=== PATIENT | female | born 1955 | race Caucasian/White ===

== ENCOUNTER 2021-05-18 18:18 | Inpatient (IN) | payer MEDICARE, OTHER ==
[~2021-05-18] VITALS: Ht 154.9 cm; Wt 53.8 kg
[2021-05-18] MEDS ORDERED: LASIX TAB 20 MG20 MG PO (19:22)
[2021-05-18] MEDS ORDERED: ATORVASTATIN CA20 MG PO (19:22)
[2021-05-18] MEDS ORDERED: FEROSUL325 MG PO (19:24)
[2021-05-18] MEDS ORDERED: POTASSIUM CHLO10 ME1 PO (19:24)
[2021-05-18] MEDS ORDERED: LEVOTHYROXINE25 MCG PO (19:26)
[2021-05-18] MEDS ORDERED: LANSOPRAZOLE30 MG PO (19:26)
[2021-05-19 04:11] LABS: HEMOGLOBIN 13.2 gm/dl (12.3-15.3); RED BLOOD COUNT 4.81 M/UL (4.00-5.10); WHITE BLOOD COUNT 12.1 K/UL (4.5-11.0)
[2021-05-19] MEDS ORDERED: HYDRALAZINE HCL25 MG PO (12:54)
[2021-05-19] MEDS ORDERED: ALENDRONATE SOD70 MG PO (12:55)
[2021-05-19] MEDS ORDERED: CYANOCOBAL1000 MCG/1 INJ (12:56)
[2021-05-19] MEDS ORDERED: ATENOLOL100 MG PO (19:22)
[2021-05-19] MEDS ORDERED: CATAPRES 0.1MG0.1 MG PO (19:23)
[2021-05-19] MEDS ORDERED: METFORMIN HCL500 MG PO (19:24)
[2021-05-19] MEDS ORDERED: FENOFIBRATE160 MG PO (19:25)
[2021-05-21 04:29] LABS: HEMOGLOBIN 8.9 gm/dl (12.3-15.3); RED BLOOD COUNT 3.34 M/UL (4.00-5.10)
[2021-05-22 04:58] LABS: HEMOGLOBIN 9.1 gm/dl (12.3-15.3); RED BLOOD COUNT 3.43 M/UL (4.00-5.10)
--- NOTE | 2021-05-22 14:38 | NUR ---
Patient recieved at approximately 1400. Patient is stable, comfortable in bed with the rails up and bed in lowest position. All IV's are patent, and the patient has all needs met.
[2021-05-25 16:08] LABS: HEMOGLOBIN 10.1 gm/dl (12.3-15.3); RED BLOOD COUNT 3.82 M/UL (4.00-5.10); WHITE BLOOD COUNT 12.8 K/UL (4.5-11.0)
[2021-05-25 16:31] LABS: BUN/CREATININE RATIO 31 (0-10)
[2021-05-26] MEDS ORDERED: HYDROCODON-ACE1 EAC2 PO (13:34)
--- NOTE | 2021-05-26 15:10 | NUR ---
MARY JO DRAIN REMOVED FROM RLQ. PRESSURE DRESSING APPLIED. 25CC OF DRAINAGE NOTED TO MARY JO DRAIN. NO DISTRESS NOTED. TOLERATED WELL.
== END 2021-05-26 16:12 | disposition home health service (06) | DRG 326 ==
LOC: PROG CARE 18:37 → M/S 05-22 14:06
PROVIDERS: Internal Medicine Infectious Disease; Physician Assistant Medical; ADMIT Surgery
PROC: 0DQ70ZZ Repair Stomach, Pylorus, Open Approach (ICD-10-PCS; 2021-05-18)
PROC: 0DQ90ZZ Repair Duodenum, Open Approach (ICD-10-PCS; principal; 2021-05-18 20:59)
DX: K26.5 Chronic or unspecified duodenal ulcer with perforation (principal); K55.029 Acute infarction of small intestine, extent unspecified; N17.9 Acute kidney failure, unspecified; E87.2 Acidosis; D62 Acute posthemorrhagic anemia; K21.9 Gastro-esophageal reflux disease without esophagitis; E11.9 Type 2 diabetes mellitus without complications; D49.0 Neoplasm of unspecified behavior of digestive system; E03.9 Hypothyroidism, unspecified; E53.8 Deficiency of other specified B group vitamins; I10 Essential (primary) hypertension; L89.152 Pressure ulcer of sacral region, stage 2; D50.9 Iron deficiency anemia, unspecified; E83.42 Hypomagnesemia; Z90.49 Acquired absence of other specified parts of digestive tract; Z88.0 Allergy status to penicillin; Z88.2 Allergy status to sulfonamides; Z79.899 Other long term (current) drug therapy; Z79.84 Long term (current) use of oral hypoglycemic drugs; Z83.3 Family history of diabetes mellitus; Z82.49 Family history of ischemic heart disease and other diseases of the circulatory system
CPT/HCPCS: 36415; 80048; 80053; 82607; 82728; 82746; 82962; 83540; 83550; 83735; 84443; 85025; 85027; 94760; 97110-GP-CQ; 97116-GP-CQ; 97161; 97530-GP-CQ; C9113; J0360; J1100; J1756; J1956; J2001; J2270; J2370; J2405; J2704; J2710; J2765; J3010; J3475; J7030; J7120; P9045

== ENCOUNTER 2021-05-31 17:05 | Inpatient (IN) | payer MEDICARE, OTHER ==
[~2021-05-31] VITALS: Ht 154.9 cm; Wt 82.0 kg
[~2021-05-31 17:05] MED LIST: ALENDRONATE SOD70 MG PO; ATENOLOL100 MG PO; ATORVASTATIN CA20 MG PO; CATAPRES 0.1MG0.1 MG PO; CYANOCOBAL1000 MCG/1 INJ; FENOFIBRATE160 MG PO; FEROSUL325 MG PO; HYDRALAZINE HCL25 MG PO; HYDROCODON-ACE1 EAC2 PO; LANSOPRAZOLE30 MG PO; LASIX TAB 20 MG20 MG PO; LEVOTHYROXINE25 MCG PO; METFORMIN HCL500 MG PO; POTASSIUM CHLO10 ME1 PO
[2021-06-02 04:27] LABS: HEMOGLOBIN 9.2 gm/dl (12.3-15.3); RED BLOOD COUNT 3.48 M/UL (4.00-5.10); WHITE BLOOD COUNT 12.7 K/UL (4.5-11.0)
[2021-06-02 04:45] LABS: BUN/CREATININE RATIO 45 (0-10)
--- NOTE | 2021-06-02 14:33 | NUR ---
1430: RN CALLED RADIOLOGY REGARDING CT RESULTS. RN INFORMED THAT RADIOLOGIST IS ACTUALLY SPEAKING WITH DR CARR AT THIS TIME REGARDING THE RESULTS.
[2021-06-02 19:27] LABS: HEMOGLOBIN 10.6 gm/dl (12.3-15.3)
[2021-06-03 05:44] LABS: HEMOGLOBIN 10.5 gm/dl (12.3-15.3); WHITE BLOOD COUNT 12.9 K/UL (4.5-11.0)
[2021-06-03 05:45] LABS: RED BLOOD COUNT 4.01 M/UL (4.00-5.10)
[2021-06-03 20:02] LABS: HEMOGLOBIN 8.8 gm/dl (12.3-15.3); WHITE BLOOD COUNT 13.4 K/UL (4.5-11.0)
[2021-06-03 20:16] LABS: RED BLOOD COUNT 3.23 M/UL (4.00-5.10)
[2021-06-04 05:11] LABS: HEMOGLOBIN 9.5 gm/dl (12.3-15.3); WHITE BLOOD COUNT 16.3 K/UL (4.5-11.0)
[2021-06-04 05:15] LABS: RED BLOOD COUNT 3.58 M/UL (4.00-5.10)
--- NOTE | 2021-06-04 16:47 | NUR ---
1500- PT FAMILY MEMBER (MOTHER) CONTACTED FOR UPDATE ON PATIENT CONDITION.
[2021-06-05 09:16] LABS: HEMOGLOBIN 8.7 gm/dl (12.3-15.3); RED BLOOD COUNT 3.28 M/UL (4.00-5.10); WHITE BLOOD COUNT 25.6 K/UL (4.5-11.0)
[2021-06-06 03:33] LABS: HEMOGLOBIN 7.1 gm/dl (12.3-15.3)
[2021-06-06 03:40] LABS: RED BLOOD COUNT 2.64 M/UL (4.00-5.10); WHITE BLOOD COUNT 15.9 K/UL (4.5-11.0)
[2021-06-07 13:05] LABS: RED BLOOD COUNT 2.4 M/UL (4.00-5.10); WHITE BLOOD COUNT 14.4 K/UL (4.5-11.0)
[2021-06-07 13:12] LABS: HEMOGLOBIN 6.2 gm/dl (12.3-15.3)
[2021-06-08 06:02] LABS: RED BLOOD COUNT 2.94 M/UL (4.00-5.10)
[2021-06-09 05:58] LABS: HEMOGLOBIN 7.9 gm/dl (12.3-15.3); RED BLOOD COUNT 2.95 M/UL (4.00-5.10); WHITE BLOOD COUNT 23.9 K/UL (4.5-11.0)
[2021-06-09 17:00] LABS: BUN/CREATININE RATIO 42 (0-10)
[2021-06-10 05:58] LABS: HEMOGLOBIN 7.5 gm/dl (12.3-15.3); RED BLOOD COUNT 2.74 M/UL (4.00-5.10); WHITE BLOOD COUNT 23.8 K/UL (4.5-11.0)
[2021-06-10 06:21] LABS: BUN/CREATININE RATIO 86 (0-10)
[2021-06-10 16:13] LABS: HEPARIN INDUCED PLATELET AB 0.199 OD (0.000-0.400)
[2021-06-10 16:38] LABS: BUN/CREATININE RATIO 93 (0-10)
[2021-06-11 05:31] LABS: HEMOGLOBIN 7.4 gm/dl (12.3-15.3); RED BLOOD COUNT 2.78 M/UL (4.00-5.10)
[2021-06-11 05:32] LABS: WHITE BLOOD COUNT 16.4 K/UL (4.5-11.0)
[2021-06-11 06:00] LABS: BUN/CREATININE RATIO 108 (0-10)
[2021-06-11 16:09] LABS: BUN/CREATININE RATIO 118 (0-10)
[2021-06-12 07:58] LABS: HEMOGLOBIN 7.1 gm/dl (12.3-15.3); RED BLOOD COUNT 2.62 M/UL (4.00-5.10); WHITE BLOOD COUNT 17.7 K/UL (4.5-11.0)
[2021-06-12 08:17] LABS: BUN/CREATININE RATIO 113 (0-10)
[2021-06-12 19:52] LABS: HEMOGLOBIN 8.4 gm/dl (12.3-15.3)
[2021-06-12 20:23] LABS: BUN/CREATININE RATIO 123 (0-10)
[2021-06-13 02:19] LABS: HEMOGLOBIN 7.3 gm/dl (12.3-15.3); RED BLOOD COUNT 2.71 M/UL (4.00-5.10); WHITE BLOOD COUNT 16.7 K/UL (4.5-11.0)
[2021-06-13 06:03] LABS: RED BLOOD COUNT 2.55 M/UL (4.00-5.10); WHITE BLOOD COUNT 16.3 K/UL (4.5-11.0)
[2021-06-13 06:10] LABS: HEMOGLOBIN 6.9 gm/dl (12.3-15.3)
[2021-06-13 12:51] LABS: HEMOGLOBIN 8.3 gm/dl (12.3-15.3)
[2021-06-13 16:47] LABS: HEMOGLOBIN 8.5 gm/dl (12.3-15.3)
[2021-06-14 06:48] LABS: HEMOGLOBIN 7.6 gm/dl (12.3-15.3); RED BLOOD COUNT 2.62 M/UL (4.00-5.10); WHITE BLOOD COUNT 13.3 K/UL (4.5-11.0)
[2021-06-15 05:40] LABS: BUN/CREATININE RATIO 166 (0-10)
[2021-06-16 05:09] LABS: HEMOGLOBIN 7.8 gm/dl (12.3-15.3); RED BLOOD COUNT 2.82 M/UL (4.00-5.10); WHITE BLOOD COUNT 29.9 K/UL (4.5-11.0)
[2021-06-16 07:58] LABS: BUN/CREATININE RATIO 184 (0-10)
== END 2021-06-16 18:32 | disposition expired | DRG 856 ==
LOC: CCU 06-01 20:54 → MED SURG 4 06-01 20:54 → CCU 06-02 17:17
PROVIDERS: Anesthesiology Pain Medicine; Family Medicine; Internal Medicine Critical Care Medicine; Internal Medicine Nephrology; Internal Medicine Pulmonary Disease; Surgery; ADMIT Surgery
PROC: 3E033XZ Introduction of Vasopressor into Peripheral Vein, Percutaneous Approach (ICD-10-PCS; principal; 2021-06-01)
PROC: 0DU707Z Supplement Stomach, Pylorus with Autologous Tissue Substitute, Open Approach (ICD-10-PCS; 2021-06-02)
PROC: 3E0336Z Introduction of Nutritional Substance into Peripheral Vein, Percutaneous Approach (ICD-10-PCS; 2021-06-02)
PROC: 02HV33Z Insertion of Infusion Device into Superior Vena Cava, Percutaneous Approach (ICD-10-PCS; 2021-06-02)
PROC: B548ZZA Ultrasonography of Superior Vena Cava, Guidance (ICD-10-PCS; 2021-06-02)
PROC: B24BZZZ Ultrasonography of Heart with Aorta (ICD-10-PCS; 2021-06-04)
PROC: 0BH17EZ Insertion of Endotracheal Airway into Trachea, Via Natural or Artificial Opening (ICD-10-PCS; 2021-06-04)
PROC: 5A1945Z Respiratory Ventilation, 24-96 Consecutive Hours (ICD-10-PCS; 2021-06-04)
PROC: 30233N1 Transfusion of Nonautologous Red Blood Cells into Peripheral Vein, Percutaneous Approach (ICD-10-PCS; 2021-06-07)
DX: T81.44XA Sepsis following a procedure, initial encounter (principal); K65.9 Peritonitis, unspecified; Z51.5 Encounter for palliative care; Z20.822 Contact with and (suspected) exposure to COVID-19; N17.0 Acute kidney failure with tubular necrosis; R65.21 Severe sepsis with septic shock; E87.3 Alkalosis; E87.2 Acidosis; K91.89 Other postprocedural complications and disorders of digestive system; L89.152 Pressure ulcer of sacral region, stage 2; T81.40XA Infection following a procedure, unspecified, initial encounter; E78.5 Hyperlipidemia, unspecified; Y83.8 Other surgical procedures as the cause of abnormal reaction of the patient, or of later complication, without mention of misadventure at the time of the procedure; R74.01 Elevation of levels of liver transaminase levels; E87.6 Hypokalemia; E11.65 Type 2 diabetes mellitus with hyperglycemia; E83.42 Hypomagnesemia; D64.9 Anemia, unspecified; D69.6 Thrombocytopenia, unspecified; M81.0 Age-related osteoporosis without current pathological fracture; E88.09 Other disorders of plasma-protein metabolism, not elsewhere classified; E03.9 Hypothyroidism, unspecified; K21.9 Gastro-esophageal reflux disease without esophagitis; E53.8 Deficiency of other specified B group vitamins; Z90.49 Acquired absence of other specified parts of digestive tract; Z88.2 Allergy status to sulfonamides; Z91.040 Latex allergy status; Z88.0 Allergy status to penicillin; Z91.013 Allergy to seafood; Z83.3 Family history of diabetes mellitus; Z82.49 Family history of ischemic heart disease and other diseases of the circulatory system; Z79.4 Long term (current) use of insulin
CPT/HCPCS: ECHO; 31500; 36415; 36430; 36600; 71045; 80048; 80053; 80076; 82009; 82310; 82533; 82565; 82803; 82962; 83605; 83735; 84100; 84132; 85007; 85014; 85018; 85025; 85027; 85384; 85610; 85730; 86140; 86850; 86900; 86901; 86920; 87040; 87070; 87086; 87205; 93306; 94002; 94003; 94640; 94645; 94760; A6212; C1751; C9113; J0171; J0690; J1120; J1205; J1335; J1940; J1956; J2001; J2250; J2270; J2310; J2370; J2405; J2704; J2765; J3010; J3475; J3480; J7030; J7040; J7070; J7120; P9016; P9047; Q9967